=== PATIENT | female | born 1960 | race Hispanic/Latino ===

== ENCOUNTER 2024-01-05 10:37 | Day surgery (SDC) | payer OTHER ==
[2024-01-01 08:54] LABS: Absolute Monocytes 0.6 K/uL (0.1-1.3); Basophils % 0.4 % (0-1.3); Eosinophils % 0.3 % (0-4.4); Hematocrit 37.2 % (36.0-45.0); Hemoglobin 12.5 g/dL (12.0-15.0); MCH 30.6 pg (27.0-35.0); MCHC 33.7 g/dL (32.0-36.0); MCV 90.8 fL (80-100); MPV 7.5 fL (7.6-11.3); Monocytes % 5.4 % (3.3-12.3); Neutrophils % 65.9 % (41.7-73.7); Nucleated Red Blood Cells % 0.1 % (0-0); Platelets 300 thou/uL (152-406); Red Cell Distribution Width 13.2 % (12.1-15.2)
[2024-01-01 09:17] LABS: Anion Gap 7.1 mEq/L (5.0-15.0); Potassium 4.1 mEq/L (3.5-5.1)
--- NOTE | 2024-01-01 10:30 | EKG ---
Test Date: 2024-01-01 Test Time: 08:34:21 Tafe Registrar: JONO MEASUREMENT RESULTS: Intervals: Rate: 53 OH: 134 QRSD: 96 QT: 416 QTc: 390 [place]: P: 74 OH: 134 QRS: 68 T: 55 INTERPRETIVE STATEMENTS: Sinus bradycardia Otherwise normal ECG No previous ECG available for comparison Electronically Signed On 01-01-24 10:29:47 CDT by Wilman Tobin
[2024-01-05] MEDS ORDERED: Ringers Lactate 1,000 ML IV ONE (10:59)
[2024-01-05] MEDS ORDERED: propofoL 200 MG/20 ML VIAL IV ONE (12:35)
[2024-01-05] MEDS ORDERED: LIDOCAINE 1% MPF 2 ML AMPULE ONE (12:35)
[2024-01-05] MEDS ORDERED: SIMETHICONE 40 MG/ 0.6 ML ONE (12:36)
[2024-01-05 14:00] VITALS: TEMP 97; O2SAT 100
[2024-01-05 14:01] VITALS: BP 132/56
== END 2024-01-05 13:56 | disposition home or self-care (01) ==
LOC: OR 10:37
PROVIDERS: ATTEND Surgery
PROC: 0DJD8ZZ Inspection of Lower Intestinal Tract, Via Natural or Artificial Opening Endoscopic (ICD-10-PCS; principal; 2024-01-05 12:45)
DX: Z12.11 Encounter for screening for malignant neoplasm of colon (principal); K64.8 Other hemorrhoids
CPT/HCPCS: 93005; 85025; 80048; 36415; 45378; J2704; J7120